=== PATIENT | female | born 1980 | race Caucasian/White ===

== ENCOUNTER 2025-03-03 15:00 | Day surgery (SDC) | payer OTHER ==
[2025-03-03] MEDS: IRON DEXTRAN COMPLEX 1,000 MG in SODIUM CHLORIDE 250 ML IVPB ONE (15:40)
[2025-03-03 16:45] VITALS: RESP 20; TEMP 98.5
[2025-03-03 17:35] VITALS: BP 112/58; PULSE 77
== END 2025-03-03 17:38 | disposition home or self-care (01) ==
LOC: JONCNONCHE 15:00 → J7W 15:00 → JONCNONCHE 17:38
PROVIDERS: ATTEND Internal Medicine Hematology & Oncology
PROC: 3E033GC Introduction of Other Therapeutic Substance into Peripheral Vein, Percutaneous Approach (ICD-10-PCS; principal; 2025-03-03)
DX: D50.9 Iron deficiency anemia, unspecified (principal)
CPT/HCPCS: J1750

== ENCOUNTER 2025-07-07 16:03 | Day surgery (SDC) | payer OTHER ==
[2025-07-07] MEDS: IRON DEXTRAN COMPLEX 1,000 MG in SODIUM CHLORIDE 250 ML IVPB ONE (16:42)
[2025-07-07 16:55] VITALS: RESP 18; TEMP 98.4
[2025-07-07 18:32] VITALS: BP 117/69; PULSE 64
== END 2025-07-07 18:35 | disposition home or self-care (01) ==
LOC: JONCNONCHE 16:03 → J7W 16:05 → JONCNONCHE 18:35
PROVIDERS: ATTEND Internal Medicine Hematology & Oncology
PROC: 3E033GC Introduction of Other Therapeutic Substance into Peripheral Vein, Percutaneous Approach (ICD-10-PCS; principal; 2025-07-07)
DX: D50.9 Iron deficiency anemia, unspecified (principal)
CPT/HCPCS: J1750